=== PATIENT | female | born 1940 | race Caucasian/White ===

== ENCOUNTER 2021-08-23 12:22 | Inpatient (IN) | payer MEDICARE, OTHER ==
[~2021-08-23] VITALS: Ht 157.5 cm; Wt 57.8 kg
[2021-08-23 12:50] LABS: Basophils # (auto) 0.1 10 ^3/uL (0-0.2); Basophils % (auto) 0.8 % (0.0-2.0); Eosinophils # (auto) 0 10 ^3/uL (0-0.8); Hematocrit 57.9 % (36.0-46.0); Hemoglobin 17.7 g/dL (12.2-16.2); Lymphocytes # (auto) 0.7 10 ^3/uL (0.4-5.4); Lymphocytes % (auto) 11.2 % (10.0-50.0); Mean Corpuscular Hemoglobin 31.8 pg (28.0-32.0); Mean Corpuscular Hgb Conc. 30.6 g/dL (32.0-36.0); Mean Corpuscular Volume 103.9 fL (80.0-100.0); Monocytes # (auto) 0.2 10 ^3/uL (0-1.3); Monocytes % (auto) 3.5 % (0.0-12.0); Neutrophils # (auto) 5.5 10 ^3/uL (1.6-8.6); Neutrophils % (auto) 84.5 % (37.0-80.0); Nucleated Red Blood Cells % 0.3 %; Red Blood Cells 5.58 10^6/uL (4.0-5.20); Red Cell Distribution Width 20.1 % (11.8-14.3); White Blood Cell 6.5 10^3/uL (4.4-10.8)
[2021-08-23 13:11] LABS: Albumin 3.1 g/dL (3.4-5.0); Anion Gap 11 (5-15); BUN/Creatinine Ratio 12.6; Blood Urea Nitrogen 28 mg/dL (7-18); Calcium 9.5 mg/dL (8.5-10.1); Carbon Dioxide 35 mmol/L (21-32); Chloride 93 mmol/L (98-107); GFR African American 27 mL/min; GFR Non-African American 23 mL/min; Glucose 331 mg/dL (74-106); Potassium 4.1 mmol/L (3.5-5.1); Sodium 139 mmol/L (136-145)
[2021-08-23 13:12] LABS: INR 1.14 (0.9-1.15); Partial Thromboplastin Time 26.8 sec (23.6-33.0)
[2021-08-23 13:16] LABS: Alanine Aminotransferase 22 U/L (13-56); Alkaline Phosphatase 129 U/L (45-117); Aspartate Aminotransferase 25 U/L (15-37); Bilirubin, Total 0.5 mg/dL (0.2-1.0); Total Protein 8.3 g/dL (6.4-8.2)
[2021-08-23] MEDS ORDERED: ONDANSETRON HCL 4 MG/2 ML VIAL ONE (15:36)
[2021-08-23] MEDS ORDERED: ONDANSETRON HCL 4 MG/2 ML VIAL IV ONE (15:45)
[2021-08-23] MEDS ORDERED: ETOMIDATE (2MG/ML) 20ML VIAL IV ONE (16:00)
[2021-08-23] MEDS ORDERED: SUCCINYLCHOLINE CHLORIDE 20 MG/ML 10ML VIAL IV ONE (16:00)
[2021-08-23] MEDS: PROPOFOL 100 ML IV SCH (16:00)
[2021-08-23] MEDS: MIDAZOLAM DRIP 50 mg/50mL 50 ML IV SCH (16:04)
[2021-08-23] MEDS ORDERED: NOREPINEPHRINE 8 MG/250ML KIT 250 ML IV ONE (16:23)
[2021-08-23] MEDS: NOREPINEPHRINE 8 MG/250ML KIT 250 ML IV SCH (16:30)
[2021-08-23] MEDS ORDERED: MORPHINE SULFATE INJECTION 2 MG/ML SYRG IV PRN (17:30)
[2021-08-23] MEDS ORDERED: NITROGLYCERIN 0.4 MG SL TAB SL PRN (17:30)
[2021-08-23] MEDS ORDERED: SODIUM CHLORIDE 0.9% 1,000 ML IV ONE (17:30)
[2021-08-23 18:21] VITALS: BP 112/67
[2021-08-23 18:43] LABS: Urine Amorphous Crystal FEW /hpf (None Seen); Urine Bacteria FEW /hpf (None Seen); Urine Blood TRACE /uL (Negative); Urine Hyaline Cast MOD /lpf (0 - 2); Urine Mucus FEW (None Seen); Urine Specific Gravity 1.019 (1.001-1.035); Urine WBC 4 /hpf (0 - 5)
[2021-08-23] MEDS: fentaNYL Drip 2500mCg/250mlNS 250 ML IV SCH (20:27)
[2021-08-23 20:40] VITALS: BP 116/63
[2021-08-23] MEDS ORDERED: HEPARIN SODIUM (PORCINE) 5000 UNITS/ML 1ML VIAL ONE (21:50)
[2021-08-23] MEDS: HEPARIN SODIUM (PORCINE) 5000 UNITS/ML 1ML VIAL SC SCH (21:55)
[2021-08-23] MEDS ORDERED: LINEZOLID 600 MG/300 ML IV BAG IV SCH (22:00)
[2021-08-23 22:28] VITALS: BP 116/64
[2021-08-23 22:43] LABS: Protein, Urine 183.5 mg/dL (0.0-11.9)
[2021-08-23 22:48] LABS: Creatinine, Urine 286 mg/dL (30.0-125.0); Sodium Urine 25 mmol/L (40-220)
[2021-08-23 23:33] VITALS: BP 108/51
[2021-08-23 23:45] VITALS: BP 115/64
[2021-08-24] VITALS (95 sets, daily range): BP systolic 91–126; BP diastolic 51–73
[2021-08-24 04:45] LABS: Basophils # (auto) 0 10 ^3/uL (0-0.2); Basophils % (auto) 0.2 % (0.0-2.0); Eosinophils # (auto) 0 10 ^3/uL (0-0.8); Hematocrit 50.5 % (36.0-46.0); Hemoglobin 16.8 g/dL (12.2-16.2); Lymphocytes % (auto) 11.4 % (10.0-50.0); Mean Corpuscular Hemoglobin 33.6 pg (28.0-32.0); Mean Corpuscular Hgb Conc. 33.3 g/dL (32.0-36.0); Monocytes # (auto) 0.5 10 ^3/uL (0-1.3); Neutrophils # (auto) 7.3 10 ^3/uL (1.6-8.6); Neutrophils % (auto) 82.4 % (37.0-80.0); Nucleated Red Blood Cells % 0.4 %; Red Blood Cells 4.99 10^6/uL (4.0-5.20); Red Cell Distribution Width 18.6 % (11.8-14.3); White Blood Cell 8.8 10^3/uL (4.4-10.8)
[2021-08-24 05:01] LABS: BUN/Creatinine Ratio 15.5; Calcium 8.7 mg/dL (8.5-10.1); Potassium 4.1 mmol/L (3.5-5.1)
[2021-08-24] MEDS: MIDAZOLAM DRIP 50 mg/50mL 50 ML IV SCH (05:02)
[2021-08-24] MEDS: HEPARIN SODIUM (PORCINE) 5000 UNITS/ML 1ML VIAL SC SCH ×2 (09:57→22:24)
[2021-08-24] MEDS: PANTOPRAZOLE 40 MG/10 ML VIAL INJ IV SCH (09:57)
[2021-08-24] MEDS: LINEZOLID 600MG/300ML 300 ML IV SCH ×2 (09:57→22:23)
[2021-08-24] MEDS: methylPREDNISolone SOD SUCC 40 MG/ML VL IV SCH ×2 (10:02→17:31)
[2021-08-24 10:03] LABS: Folate (Folic Acid) > 24.00 ng/mL (5.38-24)
[2021-08-24] MEDS: ALBUTEROL SULF 2.5 MG/0.5ML(0.5%) NEB SOLN NEB PRN ×2 (13:23→18:53)
[2021-08-24] MEDS: IPRATROPIUM BROM 0.5 MG/2.5ML INH SOL NEB SCH ×2 (13:23→18:53)
[2021-08-24] MEDS: PROPOFOL 100 ML IV SCH (16:00)
[2021-08-24] MEDS: fentaNYL Drip 2500mCg/250mlNS 250 ML IV SCH (16:00)
[2021-08-24] MEDS: NOREPINEPHRINE 8 MG/250ML KIT 250 ML IV SCH (16:30)
[2021-08-24] MEDS: PIPERACILLIN-TAZOB 2.25GM 50 ML IV SCH (17:31)
[2021-08-24] MEDS ORDERED: DEXTROSE (50%) 50ML SYRG IV PRN (17:45)
[2021-08-24] MEDS: InsuLIN REG 1unit/0.01ml Soln (100units/ml) SC SCH ×2 (18:05→23:53)
[2021-08-24] MEDS: ACCU-CHEK COMFORT CURVE STRIP VI SCH ×2 (18:06→23:51)
[2021-08-25] VITALS (93 sets, daily range): BP systolic 86–116; BP diastolic 49–70
[2021-08-25] MEDS: PIPERACILLIN-TAZOB 2.25GM 50 ML IV SCH ×4 (01:04→18:23)
[2021-08-25] MEDS: IPRATROPIUM BROM 0.5 MG/2.5ML INH SOL NEB SCH ×4 (01:15→18:57)
[2021-08-25] MEDS: ALBUTEROL SULF 2.5 MG/0.5ML(0.5%) NEB SOLN NEB PRN ×2 (01:15→05:54)
[2021-08-25] MEDS: methylPREDNISolone SOD SUCC 40 MG/ML VL IV SCH ×3 (02:10→18:23)
[2021-08-25 04:32] LABS: Basophils # (auto) 0 10 ^3/uL (0-0.2); Basophils % (auto) 0.1 % (0.0-2.0); Eosinophils # (auto) 0 10 ^3/uL (0-0.8); Hematocrit 50.7 % (36.0-46.0); Hemoglobin 16.5 g/dL (12.2-16.2); Lymphocytes # (auto) 0.2 10 ^3/uL (0.4-5.4); Lymphocytes % (auto) 2.1 % (10.0-50.0); Mean Corpuscular Hemoglobin 32.3 pg (28.0-32.0); Mean Corpuscular Hgb Conc. 32.5 g/dL (32.0-36.0); Mean Corpuscular Volume 99.5 fL (80.0-100.0); Monocytes # (auto) 0.4 10 ^3/uL (0-1.3); Monocytes % (auto) 3.7 % (0.0-12.0); Neutrophils # (auto) 10.3 10 ^3/uL (1.6-8.6); Neutrophils % (auto) 94.1 % (37.0-80.0); Nucleated Red Blood Cells % 0.1 %; Red Cell Distribution Width 18.2 % (11.8-14.3); White Blood Cell 10.9 10^3/uL (4.4-10.8)
[2021-08-25 04:51] LABS: Potassium 3.3 mmol/L (3.5-5.1)
[2021-08-25 04:59] LABS: Albumin 2.1 g/dL (3.4-5.0); BUN/Creatinine Ratio 17.1; Calcium 8.3 mg/dL (8.5-10.1)
[2021-08-25] MEDS: ACCU-CHEK COMFORT CURVE STRIP VI SCH ×4 (06:32→23:52)
[2021-08-25] MEDS: InsuLIN REG 1unit/0.01ml Soln (100units/ml) SC SCH ×4 (06:32→23:47)
[2021-08-25] MEDS: PANTOPRAZOLE 40 MG/10 ML VIAL INJ IV SCH (09:46)
[2021-08-25] MEDS: HEPARIN SODIUM (PORCINE) 5000 UNITS/ML 1ML VIAL SC SCH ×2 (09:47→22:34)
[2021-08-25] MEDS: LINEZOLID 600MG/300ML 300 ML IV SCH (09:47)
[2021-08-25] MEDS ORDERED: ALBUMIN 25% 100 ML IV ONE (10:45)
[2021-08-25] MEDS: SODIUM CHLORIDE 0.9% 1,000 ML IV SCH ×2 (11:23→22:36)
[2021-08-25] MEDS: POTASSIUM CHL 20MEQ/100ML 100 ML IV SCH ×2 (11:23→13:11)
[2021-08-25] MEDS: fentaNYL Drip 2500mCg/250mlNS 250 ML IV SCH (16:00)
[2021-08-25] MEDS: NOREPINEPHRINE 8 MG/250ML KIT 250 ML IV SCH (16:30)
[2021-08-25] MEDS: MIDAZOLAM DRIP 50 mg/50mL 50 ML IV SCH (16:56)
[2021-08-25] MEDS: PROPOFOL 100 ML IV SCH (16:56)
[2021-08-26] VITALS (98 sets, daily range): BP systolic 83–121; BP diastolic 39–69
[2021-08-26] MEDS: IPRATROPIUM BROM 0.5 MG/2.5ML INH SOL NEB SCH ×4 (00:07→18:15)
[2021-08-26] MEDS: methylPREDNISolone SOD SUCC 40 MG/ML VL IV SCH ×3 (02:00→18:22)
[2021-08-26] MEDS: InsuLIN REG 1unit/0.01ml Soln (100units/ml) SC SCH ×3 (06:00→18:23)
[2021-08-26] MEDS: PIPERACILLIN-TAZOB 2.25GM 50 ML IV SCH ×3 (06:00→13:05)
[2021-08-26] MEDS: ACCU-CHEK COMFORT CURVE STRIP VI SCH ×3 (06:00→18:14)
[2021-08-26] MEDS: ALBUTEROL SULF 2.5 MG/0.5ML(0.5%) NEB SOLN NEB PRN ×3 (06:24→18:15)
[2021-08-26 06:58] LABS: BUN/Creatinine Ratio 9.2; Calcium 6.4 mg/dL (8.5-10.1); Potassium 4.6 mmol/L (3.5-5.1)
[2021-08-26] MEDS: SODIUM CHLORIDE 0.9% 1,000 ML IV SCH ×2 (07:09→16:45)
[2021-08-26 07:48] LABS: Hematocrit 46.8 % (36.0-46.0); Mean Corpuscular Hemoglobin 32.2 pg (28.0-32.0); Mean Corpuscular Hgb Conc. 32.2 g/dL (32.0-36.0); Mean Corpuscular Volume 100.1 fL (80.0-100.0); Red Blood Cells 4.67 10^6/uL (4.0-5.20); Red Cell Distribution Width 18.7 % (11.8-14.3); White Blood Cell 19.4 10^3/uL (4.4-10.8)
[2021-08-26 08:04] LABS: Basophils % (manual) 0 (0.0-2.0); Blast Cells 0; Eosinophils % (manual) 0 (0-7); Metamyelocytes % 0; Myelocytes % 0; Promyelocytes % 0; Reactive Lymphocytes 0
[2021-08-26] MEDS: HEPARIN SODIUM (PORCINE) 5000 UNITS/ML 1ML VIAL SC SCH ×2 (09:58→22:00)
[2021-08-26] MEDS: PANTOPRAZOLE 40 MG/10 ML VIAL INJ IV SCH (09:58)
[2021-08-26] MEDS: MAGNESIUM SULFATE 1GM/100ML 100 ML IV SCH ×4 (10:14→15:45)
[2021-08-26] MEDS: MAGNESIUM OXIDE 400 MG TAB PO SCH ×2 (10:14→22:00)
[2021-08-26 12:39] LABS: Band Neutrophils % (manual) 22; Lymphocytes % (manual) 2 (10.0-50.0); Monocytes % (manual) 3 (0-12)
[2021-08-26] MEDS: MIDAZOLAM DRIP 50 mg/50mL 50 ML IV SCH (16:00)
[2021-08-26] MEDS: fentaNYL Drip 2500mCg/250mlNS 250 ML IV SCH (16:00)
[2021-08-26] MEDS: NOREPINEPHRINE 8 MG/250ML KIT 250 ML IV SCH (16:30)
[2021-08-26] MEDS ORDERED: BUMETANIDE 2.5mg/10ml (0.25 mg/ml) INJ IV ONE (16:45)
[2021-08-26] MEDS: PROPOFOL 100 ML IV SCH (17:28)
[2021-08-26] MEDS: CEFEPIME 2 GM in SODIUM CHL 0.9% 50 ML IV SCH (20:00)
[2021-08-27] VITALS (101 sets, daily range): BP systolic 67–141; BP diastolic 42–90
[2021-08-27] MEDS: IPRATROPIUM BROM 0.5 MG/2.5ML INH SOL NEB SCH ×5 (00:06→23:51)
[2021-08-27] MEDS: ALBUTEROL SULF 2.5 MG/0.5ML(0.5%) NEB SOLN NEB PRN ×3 (00:06→18:16)
[2021-08-27] MEDS: methylPREDNISolone SOD SUCC 40 MG/ML VL IV SCH ×3 (02:00→18:13)
[2021-08-27 04:29] LABS: Basophils # (auto) 0 10 ^3/uL (0-0.2); Basophils % (auto) 0.2 % (0.0-2.0); Eosinophils # (auto) 0 10 ^3/uL (0-0.8); Hematocrit 43.9 % (36.0-46.0); Hemoglobin 14.4 g/dL (12.2-16.2); Lymphocytes # (auto) 0.2 10 ^3/uL (0.4-5.4); Lymphocytes % (auto) 1.3 % (10.0-50.0); Mean Corpuscular Hemoglobin 32.5 pg (28.0-32.0); Mean Corpuscular Hgb Conc. 32.7 g/dL (32.0-36.0); Mean Corpuscular Volume 99.4 fL (80.0-100.0); Monocytes # (auto) 0.2 10 ^3/uL (0-1.3); Monocytes % (auto) 1.5 % (0.0-12.0); Red Blood Cells 4.41 10^6/uL (4.0-5.20); Red Cell Distribution Width 18.8 % (11.8-14.3); White Blood Cell 16.4 10^3/uL (4.4-10.8)
[2021-08-27 04:45] LABS: Potassium 3.8 mmol/L (3.5-5.1)
[2021-08-27 04:51] LABS: BUN/Creatinine Ratio 30.4; Magnesium 1.9 mg/dL (1.6-2.6)
[2021-08-27 05:28] LABS: Calcium 8.5 mg/dL (8.5-10.1)
[2021-08-27] MEDS: PROPOFOL 100 ML IV SCH (06:20)
[2021-08-27] MEDS: SODIUM CHLORIDE 0.9% 1,000 ML IV SCH ×3 (06:21→22:50)
[2021-08-27] MEDS: ACCU-CHEK COMFORT CURVE STRIP VI SCH ×4 (06:22→18:06)
[2021-08-27] MEDS: InsuLIN REG 1unit/0.01ml Soln (100units/ml) SC SCH ×4 (06:22→18:08)
[2021-08-27] MEDS ORDERED: BENZOCAINE (DENTAL) 20 % SPRAY 60ML MT ONE (08:36)
[2021-08-27] MEDS ORDERED: LIDOCAINE HCL 2% TOP JELLY 5ML TOP ONE (08:37)
[2021-08-27] MEDS ORDERED: SODIUM CHLORIDE LOCK 10 ML ONE (08:37)
[2021-08-27] MEDS ORDERED: LIDOCAINE 2%HCL (LOCAL ANESTH.) INJ 20ML MDV ONE (08:37)
[2021-08-27] MEDS ORDERED: EPINEPHrine HCL 1 MG/10 ML SYRG ONE (08:37)
[2021-08-27] MEDS ORDERED: GLYCOPYRROLATE 0.2 MG/ML 1ML VIAL ONE (08:37)
[2021-08-27] MEDS ORDERED: fentaNYL CITRATE 100 MCG/2 ML VL ONE (08:38)
[2021-08-27] MEDS ORDERED: MIDAZOLAM HCL 5 MG/ML-1ML VIAL ONE (08:38)
[2021-08-27] MEDS: PANTOPRAZOLE 40 MG/10 ML VIAL INJ IV SCH (10:05)
[2021-08-27] MEDS: BUMETANIDE 2.5mg/10ml (0.25 mg/ml) INJ IV SCH (10:06)
[2021-08-27] MEDS: MAGNESIUM OXIDE 400 MG TAB PO SCH ×2 (10:08→22:49)
[2021-08-27] MEDS: HEPARIN SODIUM (PORCINE) 5000 UNITS/ML 1ML VIAL SC SCH ×2 (10:09→22:50)
[2021-08-27] MEDS: CEFEPIME 2 GM in SODIUM CHL 0.9% 50 ML IV SCH (10:32)
[2021-08-27] MEDS: MIDAZOLAM DRIP 50 mg/50mL 50 ML IV SCH (16:00)
[2021-08-27] MEDS: fentaNYL Drip 2500mCg/250mlNS 250 ML IV SCH (16:00)
[2021-08-27] MEDS: NOREPINEPHRINE 8 MG/250ML KIT 250 ML IV SCH (16:30)
[2021-08-28] VITALS (39 sets, daily range): BP systolic 100–140; BP diastolic 49–83
[2021-08-28] MEDS: methylPREDNISolone SOD SUCC 40 MG/ML VL IV SCH ×3 (01:49→21:56)
[2021-08-28] MEDS: InsuLIN REG 1unit/0.01ml Soln (100units/ml) SC SCH ×5 (06:00→23:55)
[2021-08-28] MEDS: ACCU-CHEK COMFORT CURVE STRIP VI SCH ×5 (06:00→23:54)
[2021-08-28] MEDS: IPRATROPIUM BROM 0.5 MG/2.5ML INH SOL NEB SCH ×3 (06:03→18:08)
[2021-08-28] MEDS: SODIUM CHLORIDE 0.9% 1,000 ML IV SCH (08:45)
[2021-08-28] MEDS: CEFEPIME 2 GM in SODIUM CHL 0.9% 50 ML IV SCH (09:31)
[2021-08-28] MEDS: MAGNESIUM OXIDE 400 MG TAB PO SCH ×2 (09:31→21:56)
[2021-08-28] MEDS: PANTOPRAZOLE 40 MG/10 ML VIAL INJ IV SCH (09:31)
[2021-08-28] MEDS: BUMETANIDE 2.5mg/10ml (0.25 mg/ml) INJ IV SCH (09:31)
[2021-08-28] MEDS: HEPARIN SODIUM (PORCINE) 5000 UNITS/ML 1ML VIAL SC SCH ×2 (09:32→21:57)
[2021-08-28] MEDS ORDERED: LORazepam 2MG/ML-1ML VIAL IV PRN (10:45)
[2021-08-28] MEDS: ALBUTEROL SULF 2.5 MG/0.5ML(0.5%) NEB SOLN NEB PRN (18:08)
[2021-08-29] MEDS: IPRATROPIUM BROM 0.5 MG/2.5ML INH SOL NEB SCH ×4 (00:14→18:17)
[2021-08-29 05:00] VITALS: BP 134/79
[2021-08-29 05:53] LABS: Basophils # (auto) 0 10 ^3/uL (0-0.2); Basophils % (auto) 0.1 % (0.0-2.0); Eosinophils # (auto) 0 10 ^3/uL (0-0.8); Hematocrit 48.7 % (36.0-46.0); Hemoglobin 16.1 g/dL (12.2-16.2); Lymphocytes # (auto) 0.2 10 ^3/uL (0.4-5.4); Lymphocytes % (auto) 1.9 % (10.0-50.0); Mean Corpuscular Hemoglobin 33.3 pg (28.0-32.0); Mean Corpuscular Hgb Conc. 33.1 g/dL (32.0-36.0); Mean Corpuscular Volume 100.3 fL (80.0-100.0); Monocytes # (auto) 0.3 10 ^3/uL (0-1.3); Neutrophils # (auto) 8.7 10 ^3/uL (1.6-8.6); Nucleated Red Blood Cells % 0.1 %; Red Blood Cells 4.85 10^6/uL (4.0-5.20); Red Cell Distribution Width 18.9 % (11.8-14.3); White Blood Cell 9.2 10^3/uL (4.4-10.8)
[2021-08-29 06:20] LABS: Potassium 4.8 mmol/L (3.5-5.1)
[2021-08-29 06:27] LABS: BUN/Creatinine Ratio 33.3; Calcium 8.8 mg/dL (8.5-10.1)
[2021-08-29] MEDS: ACCU-CHEK COMFORT CURVE STRIP VI SCH ×3 (06:32→16:17)
[2021-08-29] MEDS: InsuLIN REG 1unit/0.01ml Soln (100units/ml) SC SCH ×3 (06:33→16:17)
[2021-08-29] MEDS: ALBUTEROL SULF 2.5 MG/0.5ML(0.5%) NEB SOLN NEB PRN ×3 (07:11→18:17)
[2021-08-29] MEDS: BUMETANIDE 2.5mg/10ml (0.25 mg/ml) INJ IV SCH (08:35)
[2021-08-29] MEDS: methylPREDNISolone SOD SUCC 40 MG/ML VL IV SCH ×2 (08:36→22:24)
[2021-08-29] MEDS: MAGNESIUM OXIDE 400 MG TAB PO SCH ×2 (08:37→22:24)
[2021-08-29] MEDS: PANTOPRAZOLE 40 MG/10 ML VIAL INJ IV SCH (08:37)
[2021-08-29] MEDS: HEPARIN SODIUM (PORCINE) 5000 UNITS/ML 1ML VIAL SC SCH (08:41)
[2021-08-29 09:00] VITALS: BP 146/65
[2021-08-29] MEDS: CEFEPIME 2 GM in SODIUM CHL 0.9% 50 ML IV SCH (12:43)
[2021-08-29 13:00] VITALS: BP 135/80
[2021-08-29 17:00] VITALS: BP 129/73
[2021-08-29 22:00] VITALS: BP 138/62
[2021-08-29 23:00] VITALS: BP 129/73
[2021-08-30] MEDS: ACCU-CHEK COMFORT CURVE STRIP VI SCH ×4 (00:02→15:59)
[2021-08-30] MEDS: InsuLIN REG 1unit/0.01ml Soln (100units/ml) SC SCH ×4 (00:04→15:59)
[2021-08-30] MEDS: ALBUTEROL SULF 2.5 MG/0.5ML(0.5%) NEB SOLN NEB PRN ×4 (00:23→19:23)
[2021-08-30] MEDS: IPRATROPIUM BROM 0.5 MG/2.5ML INH SOL NEB SCH ×4 (00:23→19:23)
[2021-08-30 05:00] VITALS: BP 126/68
[2021-08-30 05:41] LABS: Basophils # (auto) 0 10 ^3/uL (0-0.2); Basophils % (auto) 0.1 % (0.0-2.0); Eosinophils # (auto) 0 10 ^3/uL (0-0.8); Hematocrit 47.9 % (36.0-46.0); Hemoglobin 15.5 g/dL (12.2-16.2); Lymphocytes # (auto) 0.2 10 ^3/uL (0.4-5.4); Lymphocytes % (auto) 2.3 % (10.0-50.0); Mean Corpuscular Hemoglobin 32.5 pg (28.0-32.0); Mean Corpuscular Hgb Conc. 32.4 g/dL (32.0-36.0); Mean Corpuscular Volume 100.3 fL (80.0-100.0); Monocytes # (auto) 0.2 10 ^3/uL (0-1.3); Monocytes % (auto) 3.4 % (0.0-12.0); Neutrophils # (auto) 6.7 10 ^3/uL (1.6-8.6); Neutrophils % (auto) 94.2 % (37.0-80.0); Red Blood Cells 4.77 10^6/uL (4.0-5.20); Red Cell Distribution Width 19.2 % (11.8-14.3); White Blood Cell 7.1 10^3/uL (4.4-10.8)
[2021-08-30 06:01] LABS: Calcium 8.8 mg/dL (8.5-10.1); Potassium 4.3 mmol/L (3.5-5.1)
[2021-08-30 06:02] LABS: BUN/Creatinine Ratio 34.3
[2021-08-30 08:30] VITALS: BP 141/79
[2021-08-30] MEDS: PANTOPRAZOLE 40 MG/10 ML VIAL INJ IV SCH (08:59)
[2021-08-30] MEDS: BUMETANIDE 2.5mg/10ml (0.25 mg/ml) INJ IV SCH (08:59)
[2021-08-30] MEDS: MAGNESIUM OXIDE 400 MG TAB PO SCH ×2 (09:00→22:33)
[2021-08-30] MEDS: methylPREDNISolone SOD SUCC 40 MG/ML VL IV SCH ×2 (09:00→22:33)
[2021-08-30 10:07] LABS: Cholesterol 151 mg/dL (< 200); HDL Cholesterol 52 mg/dL (40-59); LDL Cholesterol 86 mg/dL (< 100); Triglycerides 141 mg/dL (< 150)
[2021-08-30] MEDS: CEFEPIME 2 GM in SODIUM CHL 0.9% 50 ML IV SCH (10:24)
[2021-08-30 12:30] VITALS: BP 135/70
[2021-08-30 17:00] VITALS: BP 129/73
[2021-08-30 22:00] VITALS: BP 131/72
[2021-08-31] MEDS: InsuLIN REG 1unit/0.01ml Soln (100units/ml) SC SCH ×4 (00:29→17:59)
[2021-08-31] MEDS: ACCU-CHEK COMFORT CURVE STRIP VI SCH ×4 (00:31→17:57)
[2021-08-31] MEDS: ALBUTEROL SULF 2.5 MG/0.5ML(0.5%) NEB SOLN NEB PRN ×2 (00:46→06:28)
[2021-08-31] MEDS: IPRATROPIUM BROM 0.5 MG/2.5ML INH SOL NEB SCH ×4 (00:46→19:31)
[2021-08-31 05:00] VITALS: BP 130/70
[2021-08-31 05:53] LABS: INR 1.18 (0.9-1.15); Partial Thromboplastin Time 26.8 sec (23.6-33.0)
[2021-08-31 08:00] VITALS: BP 147/75
[2021-08-31] MEDS: PANTOPRAZOLE 40 MG/10 ML VIAL INJ IV SCH (09:27)
[2021-08-31] MEDS: BUMETANIDE 2.5mg/10ml (0.25 mg/ml) INJ IV SCH (09:29)
[2021-08-31] MEDS: methylPREDNISolone SOD SUCC 40 MG/ML VL IV SCH (09:30)
[2021-08-31] MEDS: CEFEPIME 2 GM in SODIUM CHL 0.9% 50 ML IV SCH (09:30)
[2021-08-31] MEDS: MAGNESIUM OXIDE 400 MG TAB PO SCH ×2 (09:30→22:54)
[2021-08-31 12:00] VITALS: BP 142/87
[2021-08-31] MEDS ORDERED: OPTISON 3ml Vial for INJ IV ONE (15:00)
[2021-08-31] MEDS ORDERED: HALOPERIDOL LACTATE 5 MG/ML INJ VIAL IM PRN ×2 (15:15→21:30)
[2021-08-31] MEDS: ALBUTEROL SULF 2.5 MG/0.5ML(0.5%) NEB SOLN NEB SCH (19:31)
[2021-08-31 21:34] VITALS: BP 145/98
[2021-09-01] MEDS: IPRATROPIUM BROM 0.5 MG/2.5ML INH SOL NEB SCH ×5 (00:48→18:46)
[2021-09-01] MEDS: ALBUTEROL SULF 2.5 MG/0.5ML(0.5%) NEB SOLN NEB SCH ×5 (00:48→18:46)
[2021-09-01 05:00] VITALS: BP 143/74
[2021-09-01] MEDS: InsuLIN REG 1unit/0.01ml Soln (100units/ml) SC SCH ×4 (06:00→18:13)
[2021-09-01] MEDS: ACCU-CHEK COMFORT CURVE STRIP VI SCH ×4 (06:00→18:01)
[2021-09-01 06:12] LABS: Calcium 8.8 mg/dL (8.5-10.1); Potassium 4.1 mmol/L (3.5-5.1)
[2021-09-01 06:14] LABS: BUN/Creatinine Ratio 34.5
[2021-09-01 09:00] VITALS: BP 123/52
[2021-09-01] MEDS: predniSONE 5 MG TAB PO SCH (10:46)
[2021-09-01] MEDS: MAGNESIUM OXIDE 400 MG TAB PO SCH ×2 (10:46→22:28)
[2021-09-01] MEDS: BUMETANIDE 1 MG TAB PO SCH (10:46)
[2021-09-01] MEDS: CEFEPIME 2 GM in SODIUM CHL 0.9% 50 ML IV SCH (10:47)
[2021-09-01] MEDS: PANTOPRAZOLE 40 MG TAB PO SCH (10:47)
[2021-09-01 13:00] VITALS: BP 129/74
[2021-09-01 15:23] LABS: Basophils # (auto) 0 10 ^3/uL (0-0.2); Basophils % (auto) 0.2 % (0.0-2.0); Eosinophils # (auto) 0 10 ^3/uL (0-0.8); Eosinophils % (auto) 0.1 % (0.0-7.0); Hematocrit 52.6 % (36.0-46.0); Hemoglobin 17.3 g/dL (12.2-16.2); Lymphocytes # (auto) 0.3 10 ^3/uL (0.4-5.4); Lymphocytes % (auto) 3.5 % (10.0-50.0); Mean Corpuscular Volume 100.1 fL (80.0-100.0); Monocytes # (auto) 0.4 10 ^3/uL (0-1.3); Monocytes % (auto) 4.3 % (0.0-12.0); Neutrophils # (auto) 8.4 10 ^3/uL (1.6-8.6); Neutrophils % (auto) 91.9 % (37.0-80.0); Nucleated Red Blood Cells % 0.1 %; Red Blood Cells 5.25 10^6/uL (4.0-5.20); Red Cell Distribution Width 18.4 % (11.8-14.3); White Blood Cell 9.2 10^3/uL (4.4-10.8)
[2021-09-01 15:51] LABS: INR 1.21 (0.9-1.15); Partial Thromboplastin Time 26.1 sec (23.6-33.0)
[2021-09-01 18:00] VITALS: BP 114/70
[2021-09-01 19:58] VITALS: BP 114/70
[2021-09-01 22:00] VITALS: BP 101/59
[2021-09-01] MEDS: ATORVASTATIN 20 MG TAB PO SCH (22:28)
[2021-09-02] MEDS: IPRATROPIUM BROM 0.5 MG/2.5ML INH SOL NEB SCH ×4 (00:23→19:33)
[2021-09-02] MEDS: ALBUTEROL SULF 2.5 MG/0.5ML(0.5%) NEB SOLN NEB SCH ×4 (00:23→19:32)
[2021-09-02] MEDS: ACCU-CHEK COMFORT CURVE STRIP VI SCH ×5 (00:49→23:36)
[2021-09-02] MEDS: InsuLIN REG 1unit/0.01ml Soln (100units/ml) SC SCH ×5 (00:50→23:39)
[2021-09-02 05:00] VITALS: BP 105/67
[2021-09-02 09:00] VITALS: BP 136/51
[2021-09-02] MEDS: CEFEPIME 2 GM in SODIUM CHL 0.9% 50 ML IV SCH (10:29)
[2021-09-02] MEDS: BUMETANIDE 1 MG TAB PO SCH ×2 (10:30→22:46)
[2021-09-02] MEDS: MAGNESIUM OXIDE 400 MG TAB PO SCH ×2 (10:30→22:47)
[2021-09-02] MEDS: ASPirin-EC 81 mg tab PO SCH (10:30)
[2021-09-02] MEDS: PANTOPRAZOLE 40 MG TAB PO SCH (10:30)
[2021-09-02] MEDS ORDERED: HALOPERIDOL LACTATE 5 MG/ML INJ VIAL IM PRN (11:00)
[2021-09-02] MEDS ORDERED: FUROSEMIDE 20 MG/2 ML VIAL IV ONE (11:15)
[2021-09-02] MEDS: predniSONE 5 MG TAB PO SCH (11:53)
[2021-09-02 13:00] VITALS: BP 95/62
[2021-09-02 16:43] VITALS: BP 126/66
[2021-09-02 22:00] VITALS: BP 128/68
[2021-09-02] MEDS: ATORVASTATIN 20 MG TAB PO SCH (22:46)
[2021-09-03] MEDS: IPRATROPIUM BROM 0.5 MG/2.5ML INH SOL NEB SCH ×4 (00:28→18:34)
[2021-09-03] MEDS: ALBUTEROL SULF 2.5 MG/0.5ML(0.5%) NEB SOLN NEB SCH ×4 (00:28→18:35)
[2021-09-03 05:00] VITALS: BP 147/79
[2021-09-03] MEDS: ACCU-CHEK COMFORT CURVE STRIP VI SCH ×3 (06:52→19:52)
[2021-09-03] MEDS: InsuLIN REG 1unit/0.01ml Soln (100units/ml) SC SCH ×3 (06:53→18:00)
[2021-09-03 09:00] VITALS: BP 129/69
[2021-09-03] MEDS: CEFEPIME 2 GM in SODIUM CHL 0.9% 50 ML IV SCH ×2 (10:22→22:49)
[2021-09-03] MEDS: predniSONE 5 MG TAB PO SCH (10:22)
[2021-09-03] MEDS: ASPirin-EC 81 mg tab PO SCH (10:23)
[2021-09-03] MEDS: PANTOPRAZOLE 40 MG TAB PO SCH (10:23)
[2021-09-03] MEDS: BUMETANIDE 1 MG TAB PO SCH ×2 (10:23→22:52)
[2021-09-03] MEDS: MAGNESIUM OXIDE 400 MG TAB PO SCH ×2 (10:23→22:52)
[2021-09-03] MEDS ORDERED: ENOXAPARIN SOD 40 MG/0.4 ML SYRINGE SC ONE (10:30)
[2021-09-03 12:17] LABS: Basophils # (auto) 0.1 10 ^3/uL (0-0.2); Basophils % (auto) 0.5 % (0.0-2.0); Eosinophils # (auto) 0.1 10 ^3/uL (0-0.8); Eosinophils % (auto) 0.8 % (0.0-7.0); Hematocrit 51.7 % (36.0-46.0); Hemoglobin 16.5 g/dL (12.2-16.2); Lymphocytes # (auto) 0.4 10 ^3/uL (0.4-5.4); Mean Corpuscular Hemoglobin 32.2 pg (28.0-32.0); Mean Corpuscular Volume 100.7 fL (80.0-100.0); Monocytes # (auto) 0.4 10 ^3/uL (0-1.3); Monocytes % (auto) 3.1 % (0.0-12.0); Neutrophils # (auto) 12.3 10 ^3/uL (1.6-8.6); Neutrophils % (auto) 92.6 % (37.0-80.0); Nucleated Red Blood Cells % 0.1 %; Red Blood Cells 5.13 10^6/uL (4.0-5.20); Red Cell Distribution Width 18.6 % (11.8-14.3); White Blood Cell 13.3 10^3/uL (4.4-10.8)
[2021-09-03 13:00] VITALS: BP 137/55
[2021-09-03 13:41] LABS: Chloride 97 mmol/L (98-107); Potassium 4.2 mmol/L (3.5-5.1); Sodium 137 mmol/L (136-145)
[2021-09-03 14:02] LABS: Anion Gap 8 (5-15); BUN/Creatinine Ratio 32.5; Blood Urea Nitrogen 37 mg/dL (7-18); Calcium 9.1 mg/dL (8.5-10.1); Carbon Dioxide 32 mmol/L (21-32); GFR African American 59 mL/min; GFR Non-African American 49 mL/min; Glucose 119 mg/dL (74-106)
[2021-09-03 22:00] VITALS: BP 93/52
[2021-09-03] MEDS: ATORVASTATIN 20 MG TAB PO SCH (22:53)
[2021-09-04] MEDS: ALBUTEROL SULF 2.5 MG/0.5ML(0.5%) NEB SOLN NEB SCH ×4 (00:23→17:46)
[2021-09-04] MEDS: IPRATROPIUM BROM 0.5 MG/2.5ML INH SOL NEB SCH ×4 (00:23→17:46)
[2021-09-04 05:00] VITALS: BP 102/63
[2021-09-04] MEDS: InsuLIN REG 1unit/0.01ml Soln (100units/ml) SC SCH ×4 (06:00→18:26)
[2021-09-04] MEDS: ACCU-CHEK COMFORT CURVE STRIP VI SCH ×4 (06:10→18:24)
[2021-09-04 08:43] VITALS: BP 126/57
[2021-09-04] MEDS: CEFEPIME 2 GM in SODIUM CHL 0.9% 50 ML IV SCH ×2 (11:07→22:30)
[2021-09-04] MEDS: predniSONE 5 MG TAB PO SCH (11:16)
[2021-09-04] MEDS: BUMETANIDE 1 MG TAB PO SCH ×2 (11:16→22:30)
[2021-09-04] MEDS: ASPirin-EC 81 mg tab PO SCH (11:17)
[2021-09-04] MEDS: PANTOPRAZOLE 40 MG TAB PO SCH (11:17)
[2021-09-04] MEDS: MAGNESIUM OXIDE 400 MG TAB PO SCH ×2 (11:17→22:30)
[2021-09-04] MEDS: ENOXAPARIN SOD 40 MG/0.4 ML SYRINGE SC SCH (11:17)
[2021-09-04 13:00] VITALS: BP 116/72
[2021-09-04 17:09] VITALS: BP 115/70
[2021-09-04 21:07] VITALS: BP 114/70
[2021-09-04 22:00] VITALS: BP 98/55
[2021-09-04] MEDS: ATORVASTATIN 20 MG TAB PO SCH (22:30)
[2021-09-05] MEDS: ACCU-CHEK COMFORT CURVE STRIP VI SCH ×5 (00:30→23:47)
[2021-09-05] MEDS: InsuLIN REG 1unit/0.01ml Soln (100units/ml) SC SCH ×5 (00:32→23:47)
[2021-09-05] MEDS: IPRATROPIUM BROM 0.5 MG/2.5ML INH SOL NEB SCH ×6 (02:14→23:57)
[2021-09-05] MEDS: ALBUTEROL SULF 2.5 MG/0.5ML(0.5%) NEB SOLN NEB SCH ×6 (02:14→23:57)
[2021-09-05 05:00] VITALS: BP 99/55
[2021-09-05 07:06] LABS: Calcium 9.1 mg/dL (8.5-10.1); Potassium 3.7 mmol/L (3.5-5.1)
[2021-09-05 07:17] LABS: Basophils # (auto) 0 10 ^3/uL (0-0.2); Basophils % (auto) 0.3 % (0.0-2.0); Eosinophils # (auto) 0.1 10 ^3/uL (0-0.8); Eosinophils % (auto) 1.1 % (0.0-7.0); Hematocrit 46.4 % (36.0-46.0); Hemoglobin 14.8 g/dL (12.2-16.2); Lymphocytes # (auto) 0.6 10 ^3/uL (0.4-5.4); Lymphocytes % (auto) 6.2 % (10.0-50.0); Mean Corpuscular Hemoglobin 32.2 pg (28.0-32.0); Mean Corpuscular Hgb Conc. 31.9 g/dL (32.0-36.0); Mean Corpuscular Volume 100.8 fL (80.0-100.0); Monocytes # (auto) 0.6 10 ^3/uL (0-1.3); Monocytes % (auto) 7.1 % (0.0-12.0); Neutrophils # (auto) 7.8 10 ^3/uL (1.6-8.6); Neutrophils % (auto) 85.3 % (37.0-80.0); Red Cell Distribution Width 18.2 % (11.8-14.3); White Blood Cell 9.1 10^3/uL (4.4-10.8)
[2021-09-05 09:00] VITALS: BP 100/48
[2021-09-05] MEDS: ENOXAPARIN SOD 40 MG/0.4 ML SYRINGE SC SCH (10:00)
[2021-09-05] MEDS: predniSONE 5 MG TAB PO SCH (10:00)
[2021-09-05] MEDS: ASPirin-EC 81 mg tab PO SCH (10:00)
[2021-09-05] MEDS: PANTOPRAZOLE 40 MG TAB PO SCH (10:00)
[2021-09-05] MEDS: MAGNESIUM OXIDE 400 MG TAB PO SCH ×2 (10:00→22:11)
[2021-09-05] MEDS: CEFEPIME 2 GM in SODIUM CHL 0.9% 50 ML IV SCH ×2 (10:00→22:11)
[2021-09-05 13:00] VITALS: BP 97/77
[2021-09-05] MEDS: BUMETANIDE 1 MG TAB PO SCH ×2 (13:46→22:00)
[2021-09-05 17:05] VITALS: BP 100/59
[2021-09-05 22:00] VITALS: BP 93/53
[2021-09-05] MEDS: ATORVASTATIN 20 MG TAB PO SCH (22:11)
[2021-09-06 05:00] VITALS: BP 114/61
[2021-09-06] MEDS: ALBUTEROL SULF 2.5 MG/0.5ML(0.5%) NEB SOLN NEB SCH ×3 (05:57→19:19)
[2021-09-06] MEDS: IPRATROPIUM BROM 0.5 MG/2.5ML INH SOL NEB SCH ×3 (05:57→19:19)
[2021-09-06] MEDS: ACCU-CHEK COMFORT CURVE STRIP VI SCH ×3 (06:00→18:54)
[2021-09-06] MEDS: InsuLIN REG 1unit/0.01ml Soln (100units/ml) SC SCH ×3 (06:00→18:56)
[2021-09-06 09:00] VITALS: BP 112/70
[2021-09-06] MEDS: CEFEPIME 2 GM in SODIUM CHL 0.9% 50 ML IV SCH ×2 (11:17→22:32)
[2021-09-06] MEDS: predniSONE 5 MG TAB PO SCH (11:17)
[2021-09-06] MEDS: BUMETANIDE 1 MG TAB PO SCH ×2 (11:18→22:32)
[2021-09-06] MEDS: ASPirin-EC 81 mg tab PO SCH (11:18)
[2021-09-06] MEDS: MAGNESIUM OXIDE 400 MG TAB PO SCH ×2 (11:18→22:31)
[2021-09-06] MEDS: ENOXAPARIN SOD 40 MG/0.4 ML SYRINGE SC SCH (11:18)
[2021-09-06] MEDS: PANTOPRAZOLE 40 MG TAB PO SCH (11:19)
[2021-09-06 13:00] VITALS: BP_SYST 105; BP_SYST 118; BP_DIAS 55; BP_DIAS 62
[2021-09-06 17:00] VITALS: BP 118/62
[2021-09-06 22:00] VITALS: BP 115/56
[2021-09-06] MEDS: ATORVASTATIN 20 MG TAB PO SCH (22:31)
[2021-09-07] MEDS: ALBUTEROL SULF 2.5 MG/0.5ML(0.5%) NEB SOLN NEB SCH ×4 (01:01→18:14)
[2021-09-07] MEDS: IPRATROPIUM BROM 0.5 MG/2.5ML INH SOL NEB SCH ×4 (01:01→18:14)
[2021-09-07 05:20] VITALS: BP 130/72
[2021-09-07] MEDS: ACCU-CHEK COMFORT CURVE STRIP VI SCH ×5 (06:00→22:08)
[2021-09-07] MEDS: InsuLIN REG 1unit/0.01ml Soln (100units/ml) SC SCH ×5 (06:36→22:11)
[2021-09-07 09:00] VITALS: BP 108/47
[2021-09-07] MEDS: ENOXAPARIN SOD 40 MG/0.4 ML SYRINGE SC SCH (10:00)
[2021-09-07] MEDS: CEFEPIME 2 GM in SODIUM CHL 0.9% 50 ML IV SCH (11:23)
[2021-09-07] MEDS: predniSONE 5 MG TAB PO SCH (11:24)
[2021-09-07] MEDS: BUMETANIDE 1 MG TAB PO SCH ×2 (11:24→22:07)
[2021-09-07] MEDS: MAGNESIUM OXIDE 400 MG TAB PO SCH (11:25)
[2021-09-07] MEDS: ASPirin-EC 81 mg tab PO SCH (11:26)
[2021-09-07] MEDS ORDERED: DEXTROSE (50%) 50ML SYRG IV PRN (12:15)
[2021-09-07 13:00] VITALS: BP 103/59
[2021-09-07 17:00] VITALS: BP 99/50
[2021-09-07] MEDS: ATORVASTATIN 20 MG TAB PO SCH (22:07)
[2021-09-08] MEDS: ALBUTEROL SULF 2.5 MG/0.5ML(0.5%) NEB SOLN NEB SCH ×4 (00:25→19:35)
[2021-09-08] MEDS: IPRATROPIUM BROM 0.5 MG/2.5ML INH SOL NEB SCH ×4 (00:26→19:35)
[2021-09-08 01:33] VITALS: BP 97/49
[2021-09-08] MEDS: InsuLIN REG 1unit/0.01ml Soln (100units/ml) SC SCH ×4 (06:07→22:26)
[2021-09-08] MEDS: ACCU-CHEK COMFORT CURVE STRIP VI SCH ×4 (06:07→22:18)
[2021-09-08 09:00] VITALS: BP 104/61
[2021-09-08] MEDS: BUMETANIDE 1 MG TAB PO SCH ×2 (10:28→22:18)
[2021-09-08] MEDS: ASPirin-EC 81 mg tab PO SCH (10:32)
[2021-09-08] MEDS: ENOXAPARIN SOD 40 MG/0.4 ML SYRINGE SC SCH (10:35)
[2021-09-08 12:03] LABS: INR 1.13 (0.9-1.15); Partial Thromboplastin Time 25.4 sec (23.6-33.0)
[2021-09-08 13:00] VITALS: BP 105/58
[2021-09-08 17:00] VITALS: BP 112/75
[2021-09-08 22:00] VITALS: BP 123/63
[2021-09-08] MEDS: ATORVASTATIN 20 MG TAB PO SCH (22:19)
[2021-09-09] MEDS: IPRATROPIUM BROM 0.5 MG/2.5ML INH SOL NEB SCH ×4 (00:31→19:52)
[2021-09-09] MEDS: ALBUTEROL SULF 2.5 MG/0.5ML(0.5%) NEB SOLN NEB SCH ×4 (00:31→19:52)
[2021-09-09 05:00] VITALS: BP 103/52
[2021-09-09] MEDS: InsuLIN REG 1unit/0.01ml Soln (100units/ml) SC SCH ×4 (06:10→22:17)
[2021-09-09] MEDS: ACCU-CHEK COMFORT CURVE STRIP VI SCH ×4 (06:10→22:17)
[2021-09-09 07:22] LABS: Basophils # (auto) 0.1 10 ^3/uL (0-0.2); Basophils % (auto) 0.6 % (0.0-2.0); Eosinophils # (auto) 0.1 10 ^3/uL (0-0.8); Eosinophils % (auto) 1.1 % (0.0-7.0); Hematocrit 45.8 % (36.0-46.0); Lymphocytes # (auto) 0.9 10 ^3/uL (0.4-5.4); Lymphocytes % (auto) 8.6 % (10.0-50.0); Mean Corpuscular Hemoglobin 33.5 pg (28.0-32.0); Mean Corpuscular Hgb Conc. 32.8 g/dL (32.0-36.0); Monocytes # (auto) 0.5 10 ^3/uL (0-1.3); Monocytes % (auto) 5.1 % (0.0-12.0); Neutrophils # (auto) 8.4 10 ^3/uL (1.6-8.6); Neutrophils % (auto) 84.6 % (37.0-80.0); Nucleated Red Blood Cells % 0.1 %; Red Blood Cells 4.49 10^6/uL (4.0-5.20); Red Cell Distribution Width 17.2 % (11.8-14.3)
[2021-09-09] MEDS ORDERED: ceFAZolin 1GM/50ML 100 ML IV ONE (07:26)
[2021-09-09 07:31] LABS: Albumin 2.2 g/dL (3.4-5.0); Calcium 9.2 mg/dL (8.5-10.1); Potassium 3.5 mmol/L (3.5-5.1)
[2021-09-09 07:35] LABS: BUN/Creatinine Ratio 35.2; Bilirubin, Total 0.6 mg/dL (0.2-1.0); Total Protein 6.1 g/dL (6.4-8.2)
[2021-09-09] MEDS ORDERED: fentaNYL CITRATE 100 MCG/2 ML VL ONE (07:45)
[2021-09-09] MEDS ORDERED: MIDAZOLAM HCL 2MG/2ML 2ml VIAL (1mg/ml) ONE (07:45)
[2021-09-09] MEDS ORDERED: DexAMETHasone SOD PHOS 10MG/1ML VIAL INJ ONE (08:05)
[2021-09-09] MEDS ORDERED: PROPOFOL 10 MG/ML 20 ML IV ONE (08:06)
[2021-09-09] MEDS ORDERED: ONDANSETRON HCL 4 MG/2 ML VIAL IV PRN (09:15)
[2021-09-09] MEDS ORDERED: HYDROmorphone HCL 2 MG/ML VL IV PRN (09:15)
[2021-09-09] MEDS ORDERED: MIDAZOLAM HCL 2MG/2ML 2ml VIAL (1mg/ml) IV PRN (09:15)
[2021-09-09] MEDS ORDERED: ePHEDrine SULFATE 50 MG/ML AMP IV PRN (09:15)
[2021-09-09] MEDS ORDERED: LABETALOL HCL 5 MG/ML 4ML SYRINGE IV PRN (09:15)
[2021-09-09] MEDS ORDERED: MORPHINE SULFATE 4 MG/ML SYR/VIAL IV PRN (09:15)
[2021-09-09 10:00] VITALS: BP 136/69
[2021-09-09] MEDS: ASPirin-EC 81 mg tab PO SCH (10:00)
[2021-09-09] MEDS: BUMETANIDE 1 MG TAB PO SCH ×2 (10:13→22:16)
[2021-09-09 13:00] VITALS: BP 96/54
[2021-09-09 17:00] VITALS: BP 119/59
[2021-09-09 22:00] VITALS: BP 103/59
[2021-09-09] MEDS: ATORVASTATIN 20 MG TAB PO SCH (22:16)
[2021-09-10] MEDS: IPRATROPIUM BROM 0.5 MG/2.5ML INH SOL NEB SCH ×3 (00:28→19:27)
[2021-09-10] MEDS: ALBUTEROL SULF 2.5 MG/0.5ML(0.5%) NEB SOLN NEB SCH ×4 (00:28→19:27)
[2021-09-10 04:56] VITALS: BP 111/61
[2021-09-10 05:53] LABS: Basophils # (auto) 0 10 ^3/uL (0-0.2); Basophils % (auto) 0.1 % (0.0-2.0); Eosinophils # (auto) 0 10 ^3/uL (0-0.8); Eosinophils % (auto) 0.1 % (0.0-7.0); Hematocrit 47.4 % (36.0-46.0); Hemoglobin 15.8 g/dL (12.2-16.2); Lymphocytes # (auto) 0.7 10 ^3/uL (0.4-5.4); Lymphocytes % (auto) 9.2 % (10.0-50.0); Mean Corpuscular Hemoglobin 33.7 pg (28.0-32.0); Mean Corpuscular Hgb Conc. 33.3 g/dL (32.0-36.0); Mean Corpuscular Volume 101.1 fL (80.0-100.0); Monocytes # (auto) 0.4 10 ^3/uL (0-1.3); Monocytes % (auto) 4.6 % (0.0-12.0); Neutrophils # (auto) 6.8 10 ^3/uL (1.6-8.6); Red Blood Cells 4.69 10^6/uL (4.0-5.20); White Blood Cell 7.9 10^3/uL (4.4-10.8)
[2021-09-10 06:11] LABS: BUN/Creatinine Ratio 34.3; Calcium 9.5 mg/dL (8.5-10.1); Potassium 3.8 mmol/L (3.5-5.1)
[2021-09-10] MEDS: ACCU-CHEK COMFORT CURVE STRIP VI SCH ×4 (06:18→22:01)
[2021-09-10] MEDS: InsuLIN REG 1unit/0.01ml Soln (100units/ml) SC SCH ×4 (06:23→22:06)
[2021-09-10 09:00] VITALS: BP 115/58
[2021-09-10] MEDS: BUMETANIDE 1 MG TAB PO SCH ×2 (10:32→22:01)
[2021-09-10 12:59] VITALS: BP 133/58
[2021-09-10 17:00] VITALS: BP 117/66
[2021-09-10 22:00] VITALS: BP 119/53
[2021-09-10] MEDS: ATORVASTATIN 20 MG TAB PO SCH (22:01)
[2021-09-11] MEDS: ALBUTEROL SULF 2.5 MG/0.5ML(0.5%) NEB SOLN NEB SCH ×4 (00:16→18:55)
[2021-09-11] MEDS: IPRATROPIUM BROM 0.5 MG/2.5ML INH SOL NEB SCH ×4 (00:16→18:55)
[2021-09-11 00:40] VITALS: BP 119/53
[2021-09-11 05:00] VITALS: BP 101/54
[2021-09-11] MEDS: ACCU-CHEK COMFORT CURVE STRIP VI SCH ×4 (06:10→22:00)
[2021-09-11] MEDS: InsuLIN REG 1unit/0.01ml Soln (100units/ml) SC SCH ×4 (06:19→22:00)
[2021-09-11 09:00] VITALS: BP 104/53
[2021-09-11] MEDS: BUMETANIDE 1 MG TAB PO SCH ×2 (10:00→22:59)
[2021-09-11 13:00] VITALS: BP 111/58
[2021-09-11 17:00] VITALS: BP 101/55
[2021-09-11 20:52] VITALS: BP 116/66
[2021-09-11] MEDS: ATORVASTATIN 20 MG TAB PO SCH (22:59)
[2021-09-12] MEDS: IPRATROPIUM BROM 0.5 MG/2.5ML INH SOL NEB SCH ×4 (00:36→19:34)
[2021-09-12] MEDS: ALBUTEROL SULF 2.5 MG/0.5ML(0.5%) NEB SOLN NEB SCH ×4 (00:36→19:34)
[2021-09-12 05:30] VITALS: BP 103/63
[2021-09-12] MEDS: InsuLIN REG 1unit/0.01ml Soln (100units/ml) SC SCH ×3 (06:15→17:00)
[2021-09-12] MEDS: ACCU-CHEK COMFORT CURVE STRIP VI SCH ×3 (06:21→18:21)
[2021-09-12 09:00] VITALS: BP 105/58
[2021-09-12] MEDS: BUMETANIDE 1 MG TAB PO SCH (11:04)
[2021-09-12 13:00] VITALS: BP 98/54
[2021-09-12 17:00] VITALS: BP 97/54
== END 2021-09-12 20:55 | DRG 668 ==
LOC: ER 12:22 → TELE 17:22 → ICU WEST 22:54 → TELE-CENTR 08-28 18:31 → TELE-WESTW 09-06 11:02
PROVIDERS: ADMIT Internal Medicine; ATTEND Internal Medicine
PROC: 5A1945Z Respiratory Ventilation, 24-96 Consecutive Hours (ICD-10-PCS; principal; 2021-08-23)
PROC: 0BH17EZ Insertion of Endotracheal Airway into Trachea, Via Natural or Artificial Opening (ICD-10-PCS; 2021-08-23)
PROC: 05HY33Z Insertion of Infusion Device into Upper Vein, Percutaneous Approach (ICD-10-PCS; 2021-08-23)
PROC: 0B918ZZ Drainage of Trachea, Via Natural or Artificial Opening Endoscopic (ICD-10-PCS; 2021-08-27)
PROC: 5A09557 Assistance with Respiratory Ventilation, Greater than 96 Consecutive Hours, Continuous Positive Airway Pressure (ICD-10-PCS; 2021-09-03)
PROC: 0T5B8ZZ Destruction of Bladder, Via Natural or Artificial Opening Endoscopic (ICD-10-PCS; 2021-09-09)
PROC: 0TBB8ZX Excision of Bladder, Via Natural or Artificial Opening Endoscopic, Diagnostic (ICD-10-PCS; 2021-09-09)
PROC: 0TCB8ZZ Extirpation of Matter from Bladder, Via Natural or Artificial Opening Endoscopic (ICD-10-PCS; 2021-09-09)
DX: N17.0 Acute kidney failure with tubular necrosis (principal); I63.9 Cerebral infarction, unspecified; J15.0 Pneumonia due to Klebsiella pneumoniae; J96.02 Acute respiratory failure with hypercapnia; J96.01 Acute respiratory failure with hypoxia; J15.1 Pneumonia due to Pseudomonas; G93.41 Metabolic encephalopathy; J98.11 Atelectasis; J44.1 Chronic obstructive pulmonary disease with (acute) exacerbation; N13.6 Pyonephrosis; I95.9 Hypotension, unspecified; E83.42 Hypomagnesemia; E87.5 Hyperkalemia; H57.02 Anisocoria; E11.22 Type 2 diabetes mellitus with diabetic chronic kidney disease; I12.9 Hypertensive chronic kidney disease with stage 1 through stage 4 chronic kidney disease, or unspecified chronic kidney disease; E11.65 Type 2 diabetes mellitus with hyperglycemia; I67.1 Cerebral aneurysm, nonruptured; Z20.822 Contact with and (suspected) exposure to COVID-19; R31.9 Hematuria, unspecified; N18.9 Chronic kidney disease, unspecified; Z79.4 Long term (current) use of insulin; Z79.82 Long term (current) use of aspirin; Z79.899 Other long term (current) drug therapy; Z86.73 Personal history of transient ischemic attack (TIA), and cerebral infarction without residual deficits
CPT/HCPCS: 31500; 31622; 36415; 36556; 36600; 70450; 70545; 70547; 70551; 71045; 71250; 74176; 76775; 80048; 80053; 80061; 81001; 82565; 82570; 82607; 82746; 82805; 82962; 83036; 83735; 83880; 84156; 84300; 84443; 84484; 85007; 85025; 85027; 85610; 85730; 86850; 86900; 86901; 87040; 87070; 87077; 87081; 87086; 87088; 87186; 87205; 87426; 92610; 93005; 93306; 94002; 94003; 94640; 94660; 95819; 97110; 97116; 97163; 97530; 99291; C9113; G0378; J0690; J1100; J1815; J2250; J2405; J2543; J2704; J3480; P9047; Q9956